=== PATIENT | female | born 1940 | race Caucasian/White ===

== ENCOUNTER → 2017-07-24 | Outpatient (REF) | payer MEDICARE, OTHER | LOC: ZZSENDIN 09:41 | PROVIDERS: ATTEND Family Medicine | DX: R41.0 Disorientation, unspecified (principal) | CPT/HCPCS: 81001 ==

== ENCOUNTER → 2017-11-23 | Outpatient (CLI) | payer MEDICARE, OTHER ==
--- NOTE | 2017-11-23 12:33 | RADIOLOGY IMAGING REPORT ---
FACILITY: [facility] [place] PATIENT NAME: Donna Traylor : 1940 MR: [id number] V: [id number] EXAM DATE: ORDERING PHYSICIAN: KAREEN YOUNG TECHNOLOGIST: Location: [facility] [place] Patient: Donna Traylor : 1940 Visit/Account:[id number] Date of Sevice: 11/23/2017 SHOULDER MIN 2 VIEWS RIGHT Indication: Right shoulder pain, no history of injury. Comparison: None. Findings: There is moderate narrowing of the glenohumeral joint. The clavicle scapula and proximal h umerus are intact. The upper right ribs are intact. IMPRESSION: Moderate degenerative changes right glenohumeral joint. Report Dictated By: Lucho Hudson at 11/23/2017 12:28 PM Report E-Signed By: Lucho Hudson at 11/23/2017 12:29 PM WSN:[id number]
== END ==
LOC: RAD 11:08
PROVIDERS: ATTEND Family Medicine
DX: M19.011 Primary osteoarthritis, right shoulder (principal)